=== PATIENT | female | born 1940 | race Caucasian/White ===

== ENCOUNTER 2019-07-17 04:49 | Inpatient (IN) ==
--- NOTE | 2019-07-08 21:40 | PAT Medication Instructions ---
Medication Instructions Date of Service July 08, 2019 Home Medications multivitamin 1 tab PO DAILY olmesartan 40 mg PO QAM DO NOT take the morning of surgery multivitamin 1 tab PO DAILY olmesartan 40 mg PO QAM Other Notes If you have any questions please call us at [phone] or [phone] or [phone] or [phone]
--- NOTE | 2019-07-09 10:39 | Anesthesiology Consultation ---
Date of Service July 09, 2019 Assessment & Plan (1) Encounter for pre-operative examination: s/p L MERCEDES 2012 -- SAB without issues, but patient did have PONV. PATIENT GOES BY "KELLY" Chart Review Chart Review: Acceptable Risk for Surgery and Patient seen in Pre Admission Testing Teaching & Discussion Instructed NPO after midnight before surgery, except medications with 15 cc of water. Medication instructions provided according to the PAT guidelines. History Surgery Operation Date: 07/17/19 10:40 Proposed Procedures p Right Total Hip Arthroplasty - Vincent Crews MD Height/Weight Height: 5 ft 5 in Weight: 92.5 kg Allergies Allergy/AdvReac Type Severity Reaction Status Date / Time adhesive Allergy Unknown BANDAIDS = Verified 07/03/19 12:50 RASH latex Allergy Unknown RASH Verified 07/03/19 12:50 Medications Home Medications Medication Instructions Recorded Confirmed Last Taken multivitamin 1 tab PO DAILY 07/03/19 07/03/19 Unknown olmesartan 40 mg PO QAM 07/03/19 07/03/19 Unknown Past Medical History Medical History Hypertension Obesity Osteoarthritis Pancreas cyst monitoring with Dr. Arvizu ([facility]) Exercise / Class Metabolic Activity III < 4 Walking/Shop/Light housework (Limited by hip/knee pain, but denies CP or SOB with ambulation; using cane, using scooter with longer distances i.e grocery shopping) Past Family History Family History Grandfather Family history of diabetes mellitus Past Surgical History Surgical History H/O eye surgery macular hole repair bilateral eyes. History of arthroscopy left knee History of breast biopsy left History of cataract surgery bilateral History of colonoscopy History of dilatation and curettage History of esophagogastroduodenoscopy (EGD) with ultrasound History of open reduction and internal fixation (ORIF) procedure left arm History of repair of rotator cuff right History of repair of rotator cuff left History of total hip arthroplasty left S/P THOR-BSO Past Anesthesia History No Hx of Anesthesia Complications (other than PONV) and No Family Hx of Anesthesia Complications History of PONV No Hx of Motion Sickness (but pt is very claustophobic) and History of PONV (multiple episodes, including with MERCEDES 2012 (had spinal)) Social History Smoking Status: Never smoker Do You Dip or Chew Tobacco: No Hx Alcohol Use: No Hx Substance Use: No substance use type: does not use Review of Systems Pt denies any recent chest pain, shortness of breath, palpitations, cough, fever or URI. Physical Exam Vital Signs BP: 128/82 P: 70bpm SPO2: 97% RA T: 98.5 F R: 16 ENMT Mouth: + dental bridge (upper R side) and + dental restorations (several crowns); no chipped teeth and no loose teeth Thyromental Distance: < 3.5 Finger Breadths (3) Mallampati Class: III Neck normal visual inspection; neck extension not limited Respiratory normal respiratory effort Auscultation: lungs clear to auscultation bilaterally Cardiovascular Rate/Rhythm: regular rate and regular rhythm Heart Sounds: no murmur Vessels: no carotid bruit Extremities: no edema Testing Laboratory Results 07/09/19 10:59 07/09/19 10:59 PT 10.5 Seconds (9.0-12.0) 07/09/19 10:59 INR 1.0 (0.9-1.1) 07/09/19 10:59 APTT 24.7 Seconds (21.0-31.0) 07/09/19 10:59 Blood Type A Positive 07/09/19 10:59 Antibody Screen NEGATIVE 07/09/19 10:59 Electrocardiogram Date: 07/09/19 Findings: + NSR @ (68bpm with 1st degree A-V block) No significant change compared to 02/08/2013 EKG. *unconfirmed Chest X-Ray Date: 07/09/19 FINDINGS: Cardiomediastinal and hilar silhouettes are within normal limits. Eventration of the right hemidiaphragm. Mild prominence of the aortic arch is unchanged. Ill- defined hazy opacity about the lateral left lung base is suggestive of prominent epicardial fat pad. No pneumothorax, pleural effusion, overt pulmonary edema or focal airspace consolidation. Degenerative changes of the shoulders and spine. ORIF changes of the left proximal humerus. IMPRESSION: No acute process.
--- NOTE | 2019-07-09 11:37 | XRay Report ---
XR chest Pre-admission PA/Lat HISTORY: 78 years-old Female PAT preoperative exam. No acute chest complaints COMPARISON: Chest radiographs 02/08/2013 TECHNIQUE: PA and lateral views of the chest FINDINGS: Cardiomediastinal and hilar silhouettes are within normal limits. Eventration of the right hemidiaphr agm. Mild prominence of the aortic arch is unchanged. Ill-defined hazy opacity about the lateral left lung base is suggestive of prominent epicardial fat pad. No pneumothorax, pleural effusion, overt pu lmonary edema or focal airspace consolidation. Degenerative changes of the shoulders and spine. ORIF changes of the left proximal humerus. IMPRESSION: No acute process. The above report was generated using voice recognition software. It may contain grammatical, syntax o r spelling errors. Electronically signed by: Raúl Guevara M.D. 07/09/2019 11:36 AM
[2019-07-09 14:16] LABS: Basophils # (auto) 0.03 K/uL (0-0.2); Basophils % (auto) 0.4 %; Eosinophils # (auto) 0.08 K/uL (0-0.5); Hematocrit (blood only) 42.4 % (37-47); Hemoglobin 14.3 g/dL (12.0-16.0); Immature Granulocytes # (auto) 0.03 K/uL (0.00-0.02); Immature Granulocytes % (auto) 0.4 %; Lymphocytes # (auto) 2.09 K/uL (1.2-3.4); Lymphocytes % (auto) 24.8 %; Mean Corpuscular Hgb Conc 33.7 g/dL (32-36); Mean Corpuscular Volume 88.1 fL (80-100); Mean Platelet Volume 10.9 fL (7.4-10.4); Monocytes # (auto) 0.65 K/uL (0.11-0.59); Monocytes % (auto) 7.7 %; Neutrophils # (auto) 5.54 K/uL (1.4-6.5); Neutrophils % (auto) 65.7 %; Platelet Count 274 K/uL (130-400); RDW Coefficient of Variation 13.5 % (11.5-14.5); RDW Standard Deviation 43.5 fL (36.4-46.3); Red Blood Count 4.81 M/uL (4.2-5.4); White Blood Count 8.42 K/uL (4.8-10.8)
[2019-07-09 14:22] LABS: BUN Creatinine Ratio 16.5 (10-20); C Reactive Protein 0.42 mg/dl (0-0.29); Calcium 9.1 mg/dl (8.5-10.1); Creatinine Clr Calc Pharmacy 51.9 ml/min; Est GFR (African American) 61.4; Potassium 4.1 mmol/L (3.5-5.1)
[2019-07-09 14:25] LABS: Partial Thromboplastin Ratio 0.9; Partial Thromboplastin Time 24.7 Seconds (21.0-31.0); Prothrombin Time 10.5 Seconds (9.0-12.0)
--- NOTE | 2019-07-14 09:30 | History and Physical Report ---
DATE OF ADMISSION: 07/17/2019 CHIEF COMPLAINT: Right hip and groin pain. HISTORY OF PRESENT ILLNESS: The patient is a 78-year-old female well known to me from previous left hip replacement done in 2012. I have been treating her over the years for knee arthritis and putting injections into her knee. Over the past several months, she has developed markedly increased pain and discomfort in her right hip and groin area to the point where she has had to use a cane to get along. We tried various injections, which provided some temporary relief only. She describes mostly groin pain. Her primary care doctor had ordered an MRI, which showed significant edema and collapse of the femoral head. The patient is now presenting for definitive treatment. Denies any back pain. No fevers or signs of infection. PAST MEDICAL HISTORY: 1. Hypertension. 2. Low back pain. 3. Gastroesophageal reflux disease. 4. Mild obesity with BMI of 34. PAST SURGICAL HISTORY: Includes: 1. Humerus fracture. 2. Bilateral rotator cuff repairs. 3. Cataract surgery. 4. Hysterectomy. 5. Left hip replacement done 03/12/2013. ALLERGIES: LATEX WHICH CAUSES A RASH. CURRENT MEDICATIONS: Include: 1. Multivitamin. 2. Olmesartan 40 mg a day. SOCIAL HISTORY: A 78-year-old female. She lives in [place]. She is . Does not smoke. FAMILY HISTORY: Noncontributory. REVIEW OF HISTORY: Negative for diabetes, neurologic problem, vascular problems, bleeding disorders. Denies any chest pain or shortness of breath. No history of DVT or PE. No known bleeding problems. PHYSICAL EXAMINATION: GENERAL: Shows a healthy pleasant elderly female. Looks younger than her stated age. HEENT: Benign. NECK: Supple, no lymphadenopathy. LUNGS: Clear to auscultation. HEART: Regular rate and rhythm. ABDOMEN: Soft, nontender, nondistended. EXTREMITIES: Grossly neurovascularly intact except as follows: Examination of the right hip and leg reveals patient walks with use of a cane. Leg lengths appear pretty equal. She has significant pain with any type of hip motion, particularly internal rotation. She can internally rotate to about 10 degrees, but it is painful. She can do a straight leg raise. She is neurologically intact. X-RAYS: X-rays of the right hip were reviewed. It shows [id number] hip arthritis. Fairly mild suggestion of collapse of the femoral head and a little bit of aspheric femoral head. Joint space is still maintained. She does have some Cam impingement. MRI of the right hip was reviewed from 05/01. It shows significant edema in the femoral head and a fairly large hip joint effusion. She has got collapse of the femoral head. Not classic avascular necrosis. ASSESSMENT: A 78-year-old white female with bilateral knee degenerative joint disease with a markedly increased right hip pain and discomfort over the past several months to the point where she has had to use a cane to get along. She has failed conservative treatment. Her MRI is pretty impressive and her disease is only likely to progress. Definitive treatment is hip replacement. PLAN: We talked about treatment options. We are going to proceed with right total hip replacement. The risks and benefits of this procedure were explained to the patient including but not limited to DVT, PE, , infection, neurological injury, vascular injury, bleeding problem, pain, limited range of motion, stiffness, failure to relieve her symptoms, incomplete relief of symptoms, need for further surgery in the future, fracture, leg length inequality, nerve palsy, dislocation, need for revision surgery, etc. The patient understands and desires to proceed. Informed consent was obtained. As far as discharge plans, she is planning to be discharged home using the home health program.
[2019-07-17] MEDS ORDERED: FAMOTIDINE 20 MG TAB PO SCH (06:00)
[2019-07-17] MEDS ORDERED: TRANEXAMIC ACID 1,000 MG **IV Pre-op IV SCH (06:00)
[2019-07-17] MEDS ORDERED: LR 500ML BOLUS, THEN 15ML/HR IV SCH (06:00)
[2019-07-17] MEDS ORDERED: METOCLOPRAMIDE HCL 10 MG TABLET PO SCH (06:00)
[2019-07-17] MEDS ORDERED: CEFAZOLIN 2000MG 2,000 MG/15 ML SYR IV SCH (06:00)
[2019-07-17] MEDS ORDERED: GABAPENTIN 300 MG CAP PO SCH (06:00)
[2019-07-17] MEDS ORDERED: LR 60ML/HR IV SCH (06:00)
[2019-07-17] MEDS ORDERED: ACETAMINOPHEN 500 MG TAB PO SCH (06:00)
[2019-07-17] MEDS ORDERED: BUPIVACAINE 0.5 % 5 MG/1 ML PF 10ML VIAL ONE (06:27)
[2019-07-17] MEDS ORDERED: BACITRACIN INJ 50,000 UNIT VIAL ONE (06:39)
[2019-07-17] MEDS ORDERED: BUPIVACAINE/EPINEPHRINE 0.5% MPF 1:200,000 30 ML VIAL ONE (06:39)
[2019-07-17] MEDS ORDERED: MIDAZOLAM HCL 1 MG/ML 2ML VIAL ONE (06:44)
[2019-07-17] MEDS ORDERED: MoRPHine SULFATE PF 1 MG/ML 10 ML AMP/VIAL ONE (06:48)
--- NOTE | 2019-07-17 06:50 | History & Physical Bridge Note ---
Date of Service July 17, 2019 History & Physical Bridge Note I have examined the patient, reviewed the History & Physical and in the interval since the performance of the History & Physical I have noted the following changes of clinical significance: no changes noted
[2019-07-17] MEDS ORDERED: DiphenhydrAMINE HCL 50 MG/ML VIAL ONE (06:51)
[2019-07-17] MEDS ORDERED: ONDANSETRON INJ 2 MG/ML 2 ML VIAL ONE (06:51)
[2019-07-17] MEDS ORDERED: ONDANSETRON INJ 2 MG/ML 2 ML VIAL IV PRN ×2 (07:31→10:16)
[2019-07-17] MEDS ORDERED: LACTATED RINGER'S 500 ML IV PRN (07:31)
[2019-07-17] MEDS ORDERED: NALOXONE HCL 0.08 MG in SYRINGE 1.8 ML IV PRN (07:31)
[2019-07-17] MEDS ORDERED: NALOXONE HCL 0.4 MG/1 ML VIAL/CARP IV PRN ×2 (07:31→10:16)
[2019-07-17] MEDS ORDERED: KETOROLAC TROMETHAMINE 15 MG/ML VIAL IV PRN (07:31)
[2019-07-17] MEDS ORDERED: DiphenhydrAMINE HCL 50 MG/ML VIAL IV PRN (07:31)
[2019-07-17] MEDS ORDERED: PROMETHAZINE HCL 12.5 MG in SODIUM CHLORIDE 0.9% 50 ML IV PRN (07:31)
[2019-07-17] MEDS ORDERED: MoRPHine SULFATE PF 1 MG/ML 10 ML AMP/VIAL INT SPINAL ONE (07:31)
[2019-07-17] MEDS ORDERED: NALOXONE HCL 1 MG in SODIUM CHLORIDE 0.9% 1000ML 1,000 ML IV PRN (07:31)
[2019-07-17] MEDS ORDERED: MEPERIDINE HCL 25 MG/ML CARP IV PRN (07:31)
[2019-07-17] MEDS ORDERED: NALBUPHINE HCL INJ 10 MG/ML AMP IV PRN (07:31)
[2019-07-17] MEDS ORDERED: ePHEDrine sulfate 50 MG/ML AMP IV PRN (07:31)
[2019-07-17] MEDS ORDERED: PROPOFOL IV EMULSION 10 MG/ML 20 ML VIAL IV ONE ×3 (07:34→08:20)
[2019-07-17] MEDS ORDERED: ePHEDrine sulfate 50 MG/ML SYR ONE (07:34)
[2019-07-17] MEDS ORDERED: DC INTRASPINAL MORPHINE SCH (07:45)
[2019-07-17] MEDS ORDERED: NO NARCOTICS OR SEDATIVES SCH (07:45)
[2019-07-17] MEDS ORDERED: SODIUM CHLORIDE 0.9% 1000ML 1,000 ML IV SCH (07:45)
[2019-07-17] MEDS ORDERED: PHENYLEPHRINE 100MCG/ML 5ML SYR ONE (08:16)
--- NOTE | 2019-07-17 08:41 | Post Operative Brief Note ---
PG Immediate Post Op with CF Date of Surgery July 17, 2019 Pre & Post Diagnosis Operation Date: 07/17/19 07:00 Pre-Op Diagnosis: Right Hip Degenerative Joint Disease Post-Op Diagnosis: Right Hip Degenerative Joint Disease Procedure Operation Date: 07/17/19 07:00 Actual Procedures p Right Total Hip Arthroplasty(Right) - Vincent Crews MD Surgeon Vincent Crews MD Bump Grader Operator Celio, PAC Estimated Blood Loss 200 Findings Consistent with Post-Op Diagnosis Fluids 800 cc Specimens Specimen Description: Permanent Specimens: A) Right Femoral Head Drains Lowery Catheter (latex free) Anesthesia Type Spinal MAC Complications none Disposition Accompanied Patient To Recovery: Yes Disposition: Recovery Room
--- NOTE | 2019-07-17 09:12 | XRay Report ---
AP PELVIS, CROSSTABLE LATERAL RIGHT HIP History: Right total hip arthroplasty. Degenerative arthritis. Postop. FINDINGS: The patient is status post a right total hip arthroplasty. The hardware is intact. No fract ure or dislocation. Skin aldo are in place. Prior left total hip arthroplasty. IMPRESSION: Right total hip arthroplasty. No evidence for hardware complication Electronically signed by: Natanael Rico M.D. 07/17/2019 9:10 AM
--- NOTE | 2019-07-17 09:43 | Anesthesiology Progress Note ---
Date of Service July 17, 2019 Anesthesia Post Procedure Vital Signs Vital Signs: Temp Pulse Pulse Resp BP Pulse Ox 07/17/19 09:30 36.6 C 76 20 129/58 L 96 07/17/19 09:20 36.6 C 77 20 108/52 L 98 07/17/19 09:10 36.6 C 77 20 132/60 94 07/17/19 09:00 78 15 118/55 L 99 07/17/19 08:50 75 16 134/62 100 07/17/19 08:42 36.5 C 77 16 156/69 H 100 07/17/19 05:35 36.9 C 73 20 178/96 H 97 Transfer of Care Handoff Completed per policy Notes Mental Status: alert / awake / arousable Patient Amnestic to Procedure: Yes Nausea / Vomiting: adequately controlled Pain: adequately controlled Airway Patency, RR, SpO2: stable & adequate BP & HR: stable & adequate Hydration State: stable & adequate Neuraxial Anesthesia: was administered and sensory block is resolving Anesthetic Complications: no major complications apparent
[2019-07-17] MEDS ORDERED: HYDROmorphone INJ 0.5 MG/0.5 ML SYR IV PRN (10:16)
[2019-07-17] MEDS ORDERED: ALUMINUM/MAGNESIUM SUSP 30 ML UDC PO PRN (10:16)
[2019-07-17] MEDS ORDERED: METOCLOPRAMIDE HCL INJ 5 MG/ML 2 ML VIAL IV PRN (10:16)
[2019-07-17] MEDS ORDERED: BISACODYL 10 MG SUPP PR PRN (10:16)
[2019-07-17] MEDS ORDERED: MULTIVITAMIN TAB PO SCH (10:16)
[2019-07-17] MEDS ORDERED: MAGNESIUM HYDROXIDE SUSP 30 ML UDC PO PRN (10:16)
--- NOTE | 2019-07-17 11:09 | Operative Report ---
DATE OF OPERATION: 07/17/2019 SURGEON: Vincent Crews MD MECHANICAL SYSTEMS DESIGN ENGINEER: INGRIS Nguyễn PREOPERATIVE DIAGNOSIS: Right hip degenerative joint disease. POSTOPERATIVE DIAGNOSIS: Right hip degenerative joint disease. PROCEDURE PERFORMED: Right uncemented ceramic on highly cross-linked polyethylene total hip arthroplasty. COMPLICATIONS: None. ESTIMATED BLOOD LOSS: 200 mL. FLUID REPLACEMENT: 800 mL crystalloid fluid replacement. ANESTHESIA: Spinal. DRAINS: None. SPECIMEN: Right femoral head sent for pathology. OPERATIVE INDICATIONS: The patient is a 78-year-old white female who is well known to me from treating her multiple arthritic joints over the years. She underwent a left hip replacement about 5 years ago. I have been treating her for knee arthritis, and over the past several months, she developed markedly increased pain and discomfort in her right hip to the point where she has had to resort to using a cane to get along. We treated her with one injection which provided minimal relief. She continued on conservative care without much relief. An MRI showed extensive edema in the femoral head and collapse of the femoral head and a joint effusion. The patient elected to proceed with surgical treatment. OPERATIVE FINDINGS: Operative findings revealed advanced right hip DJD. She has significant joint effusion. She had an anterior acetabular osteophytes and a full thickness cartilage loss of the femoral head and acetabulum. OPERATIVE IMPLANTS: Operative implants consisted of: 1. A Biomet G7 size 52 mm acetabular shell. 2. 6.5 cancellous acetabular screws, 1 at 35 mm in length and 1 at 30 mm in length. 3. An apex hole eliminator. 4. A highly cross-linked polyethylene liner with a 52 mm outer diameter, 36 mm inner diameter with a caceres placed inferior and posterior. 5. DePuy Corail size 10 KLA femoral stem. 6. A +1.5/36 mm ceramic articular ball. OPERATIVE PROCEDURE: The patient was taken to the operating room, identified and placed on the operating table in supine position. All contact areas were appropriately padded. IV antibiotics provided by anesthesia team. Spinal anesthetic had been implemented in the holding area. Lowery catheter was placed in sterile fashion. The patient was then placed in the left lateral decubitus position. An axillary roll was placed. [facility] hip positioner was used for positioning. Right hip and leg were then prepped and draped in usual sterile fashion. A posterolateral approach to the right hip was then performed through a curvilinear incision centered over the greater trochanter. Sharp dissection was carried through subcutaneous tissue down to the level of the IT band and gluteal fascia. She had very large thick soft tissue envelope. The IT band and gluteal fascia were then incised longitudinally in line with skin incision. The underlying greater trochanteric bursa was excised. The piriformis and external rotators were tagged and taken off the posterior aspect of the hip joint capsule. A posterior capsulotomy was then performed leaving a large flap for later repair. Hip was internally rotated and dislocated. Femoral neck osteotomy cut was made with final cut about 12 mm above the lesser trochanter. Femoral head was removed and sent for pathology. The femur was retracted anteriorly. Attention was then drawn to the acetabulum. The acetabulum labrum was excised. The pulvinar fat was excised. Sequential reaming of the acetabulum was then performed beginning with size 43 and progressing up to 51. I then did ream a bit with a 52 reamer and we placed a 52 mm cup in about 40 degrees of lateral opening and 20 degrees of anteversion. A large anterior osteophyte was removed. The cup was fixed with two 6.5 cancellous acetabular screws. A trial liner was placed. Attention was then drawn to the femur. The proximal femur was entered with cookie cutter followed by canal finder. I then broached beginning with a size 8 and progressing up to a 10. We got good fit at 10. We then trialed the hip. I did use a calcar reamer to smoothen off the calcar. We trialed the hip initially with a +5 head, but soft tissue tension just seemed too tight. We used the +1.5/36 mm ceramic head. The hip was fully stable in full extension and external rotation and flexion to 90 degrees, internal rotation to about [address] a caceres inferior and posterior to maximize stability in flexion. We elected to place these implants. All trial implants were removed. An apex hole eliminator was placed. A permanent polyethylene liner highly cross-linked with a caceres placed inferior and posterior was impacted in position. A DePuy Corail size 10 KLA femoral stem was impacted in position. A +1.5/36 mm ceramic articular ball was placed. Hip was located and once again found to be stable. Attention was then drawn toward closing. The wound was irrigated with copious amounts of pulsatile lavage solution. I did inject locally with 60 mL of 0.5% Marcaine with epinephrine. Posterior capsule and external rotators were then repaired through drill holes in the posterior trochanter with #2 Ti-Cron suture. The IT band and gluteal fascia were then closed with #1 PDS suture in running fashion. The subcutaneous tissue was then closed with 2 layers with the deep layer #2 Vicryl suture in a buried interrupted fashion and subcutaneous tissues with 2-0 Dexon suture in a buried interrupted fashion. Skin was closed with skin aldo. Leg was then cleaned, dried and a sterile dressing of Xeroform, 4 x 4, sterile ABD pad and foam tape was applied. The patient then transferred to the recovery room in stable condition. The patient tolerated the procedure well with no complication. All needle and sponge counts were correct at the end of the operation. I attest to the content of the Intraoperative Record and any orders documented therein. Any exception s are noted below.
[2019-07-17] MEDS: SODIUM CHLORIDE 0.9% 1000ML 1,000 ML IV SCH ×2 (11:53→20:48)
[2019-07-17] MEDS: ASPIRIN 81 MG ECTAB PO SCH ×2 (12:55→20:43)
[2019-07-17] MEDS: MULTIVITAMIN TAB PO SCH (12:55)
[2019-07-17] MEDS: OLMESARTAN MEDOXOMIL 40 MG TAB PO SCH (12:56)
[2019-07-17] MEDS: DOCUSATE SODIUM 100 MG CAP PO SCH ×2 (12:58→20:48)
[2019-07-17] MEDS: CEFAZOLIN 2000MG 2,000 MG/15 ML SYR IV SCH ×2 (14:22→22:16)
[2019-07-17] MEDS: ACETAMINOPHEN 500 MG TAB PO SCH ×2 (14:31→22:16)
[2019-07-17] MEDS ORDERED: TRANEXAMIC ACID 1,000 MG in 0.9 % SODIUM CHLORIDE 100 ML IV SCH (14:42)
--- NOTE | 2019-07-17 15:16 | Progress Note ---
DATE: 07/17/2019 SUBJECTIVE: A 78-year-old white female postop from a right hip replacement. She is doing well. Not having any pain yet. No chest pain or shortness of breath. Not feeling dizzy or lightheaded. OBJECTIVE: VITAL SIGNS: Temperature 36.4. Vital signs stable. GENERAL: Reveals a pleasant elderly female. She is sitting up in her bed and looks comfortable. She is talking to her family. LUNGS: Clear to auscultation. HEART: Has regular rate and rhythm. ABDOMEN: Soft, nontender, nondistended. EXTREMITIES: Grossly neurovascularly intact except as follows: Examination of the right lower extremity reveals the leg lengths to be equal. Dressing is clean, dry and intact. Thigh is soft and supple. She is neurologically intact. She can dorsiflex and plantarflex her foot appropriately. X-RAYS: X-ray of the right hip from recovery room reviewed. It shows a right uncemented total hip arthroplasty. Components looked to be in good position. No signs of problems. ASSESSMENT: A 78-year-old white female postop from right hip replacement, doing well. Pain is controlled. Hip is located. She is neurologically intact. PLAN: 1. DVT prophylaxis including thigh-high TEDs, SCDs, and aspirin twice a day. 2. PT/OT. Weight bear as tolerated. Right total hip protocol. 3. Pain control, doing pretty well with current pain regimen. 4. IV antibiotics x24 hours. 5. Disposition: Plan to discharge to home with some home health once adequately recovered and medically stable.
[2019-07-17] MEDS: FERROUS GLUCONATE 324 MG TAB PO SCH (17:47)
[2019-07-17] MEDS: ASCORBIC ACID 500 MG TAB PO SCH (17:48)
[2019-07-17] MEDS: SENNA 8.6 MG TAB PO SCH (20:44)
[2019-07-18] MEDS ORDERED: KETOROLAC TROMETHAMINE 15 MG/ML VIAL IV SCH (02:00)
[2019-07-18 06:06] LABS: Basophils # (auto) 0.01 K/uL (0-0.2); Basophils % (auto) 0.1 %; Eosinophils # (auto) 0.02 K/uL (0-0.5); Eosinophils % (auto) 0.2 %; Hematocrit (blood only) 33.2 % (37-47); Hemoglobin 11.1 g/dL (12.0-16.0); Immature Granulocytes # (auto) 0.02 K/uL (0.00-0.02); Immature Granulocytes % (auto) 0.2 %; Lymphocytes # (auto) 1.45 K/uL (1.2-3.4); Lymphocytes % (auto) 11.5 %; Mean Corpuscular Hgb Conc 33.4 g/dL (32-36); Mean Corpuscular Volume 88.3 fL (80-100); Mean Platelet Volume 10.2 fL (7.4-10.4); Monocytes # (auto) 0.97 K/uL (0.11-0.59); Monocytes % (auto) 7.7 %; Neutrophils # (auto) 10.15 K/uL (1.4-6.5); Neutrophils % (auto) 80.3 %; Platelet Count 173 K/uL (130-400); RDW Coefficient of Variation 13.7 % (11.5-14.5); RDW Standard Deviation 44.5 fL (36.4-46.3); Red Blood Count 3.76 M/uL (4.2-5.4); White Blood Count 12.62 K/uL (4.8-10.8)
[2019-07-18] MEDS: ACETAMINOPHEN 500 MG TAB PO SCH ×3 (06:14→21:16)
[2019-07-18 06:43] LABS: BUN Creatinine Ratio 13.5 (10-20); Calcium 7.9 mg/dl (8.5-10.1); Creatinine Clr Calc Pharmacy 38.9 ml/min; Est GFR (African American) 43.8; Est GFR (Non-African American) 37.8; Potassium 3.7 mmol/L (3.5-5.1)
[2019-07-18] MEDS: FERROUS GLUCONATE 324 MG TAB PO SCH ×2 (08:28→17:35)
[2019-07-18] MEDS: ASCORBIC ACID 500 MG TAB PO SCH ×2 (08:28→17:35)
[2019-07-18] MEDS: OLMESARTAN MEDOXOMIL 40 MG TAB PO SCH (08:28)
[2019-07-18] MEDS: MULTIVITAMIN TAB PO SCH (08:28)
[2019-07-18] MEDS: ASPIRIN 81 MG ECTAB PO SCH ×2 (08:28→21:16)
[2019-07-18] MEDS: DOCUSATE SODIUM 100 MG CAP PO SCH ×2 (08:28→21:03)
[2019-07-18] MEDS: TRAMADOL HCL 50 MG TABLET PO PRN ×2 (09:20→15:24)
--- NOTE | 2019-07-18 20:37 | Progress Note ---
DATE: 07/18/2019 SUBJECTIVE: A 78-year-old white female postop day 1 from right hip replacement. She is doing pretty well. Doing okay with pain meds. No chest pain or shortness of breath. Not feeling dizzy or lightheaded. OBJECTIVE: VITAL SIGNS: Temperature 36.9. Vital signs stable. PHYSICAL EXAMINATION: GENERAL: Pleasant, middle-aged female. She is sitting up in her bedside chair talking to her . Looks comfortable. EXTREMITIES: Examination of the right hip reveals the dressing to be clean, dry and intact. Leg lengths are equal. Hip is located. She is neurologically intact. LABORATORY DATA: Hemoglobin 11.1. Hematocrit 33.2. Electrolytes are stable. Creatinine is a little bit elevated at 1.35. ASSESSMENT: A 78-year-old white female postop day 1 from a right hip replacement, doing pretty well. Pain is controlled. Hip is located. Her creatinine is a bit elevated and we will stop her Toradol. Recheck her creatinine in the morning. PLAN: 1. DVT prophylaxis including thigh-high TEDs, SCDs, and aspirin twice a day. 2. PT/OT. Weight bear as tolerated. Right total hip protocol. 3. Pain control, doing pretty well with current pain regimen. 4. Elevated creatinine. We will stop the Toradol and recheck her creatinine in the morning. Encourage p.o. fluid intake. 5. Disposition: Plan to discharge to home with some home health tomorrow if doing okay with therapy.
[2019-07-18] MEDS: SENNA 8.6 MG TAB PO SCH (21:03)
[2019-07-19] MEDS: TRAMADOL HCL 50 MG TABLET PO PRN ×2 (01:34→07:49)
[2019-07-19 05:52] LABS: BUN Creatinine Ratio 13.2 (10-20); Calcium 8.5 mg/dl (8.5-10.1); Est GFR (African American) 60.7; Est GFR (Non-African American) 52.4; Potassium 3.6 mmol/L (3.5-5.1)
[2019-07-19] MEDS: ACETAMINOPHEN 500 MG TAB PO SCH (06:16)
[2019-07-19] MEDS: DOCUSATE SODIUM 100 MG CAP PO SCH (07:51)
[2019-07-19] MEDS: MULTIVITAMIN TAB PO SCH (07:51)
[2019-07-19] MEDS: OLMESARTAN MEDOXOMIL 40 MG TAB PO SCH (07:51)
[2019-07-19] MEDS: ASPIRIN 81 MG ECTAB PO SCH (07:51)
[2019-07-19] MEDS: ASCORBIC ACID 500 MG TAB PO SCH (07:51)
[2019-07-19] MEDS: FERROUS GLUCONATE 324 MG TAB PO SCH (07:51)
--- NOTE | 2019-07-19 07:59 | Progress Note ---
DATE: 07/19/2019 SUBJECTIVE: A 78-year-old white female postop day 2 from right hip replacement. She is doing pretty well. Some soreness in her hip. Taking tramadol and doing okay with that. No chest pain or shortness of breath. OBJECTIVE: VITAL SIGNS: Temperature 37.2. Vital signs stable. GENERAL: Shows a pleasant, middle-aged female. She is sitting up in bed, looks pretty comfortable. EXTREMITIES: Examination of the right leg reveals the dressing to be clean, dry and intact. Thigh is soft and supple. NEUROLOGIC: She is neurologically intact. ASSESSMENT: A 78-year-old white female postop day 2 from right hip replacement, doing pretty well. Pain is reasonably well controlled. Hip is located. She is neurologically intact. PLAN: 1. DVT prophylaxis including thigh-high TEDs, SCDs, and aspirin twice a day. 2. PT/OT. Weight bear as tolerated. Right total hip protocol. 3. Pain control, doing okay with current pain regimen. 4. Disposition: Plan to discharge to home with some home health later today.
--- NOTE | 2019-07-20 22:52 | Discharge Summary ---
ADMITTING PHYSICIAN AND SURGEON: Dr. Vincent Crews. ADMITTING DIAGNOSIS: Right hip degenerative joint disease. SURGERY PERFORMED: Right total hip arthroplasty. SECONDARY DIAGNOSES: Hypertension, low back pain, gastroesophageal reflux disease, mild obesity. CONSULTS: None obtained. HISTORY AND PHYSICAL EXAMINATION: Well documented in the patient's chart. HOSPITAL COURSE: The patient was admitted on 07/17/2019, underwent a total hip arthroplasty, tolerated the procedure well. There were no complications. She was transferred to the PACU postoperatively and later to the orthopedic for further care. She was given Ancef for antibiotic prophylaxis, EHSAN stockings, SCDs and aspirin for DVT prophylaxis. Hemoglobin, hematocrit and vital signs were monitored during her hospital stay and remained stable. She did not require any blood transfusions. There were no complications. By postoperative day 2, she was tolerating a regular diet, pain was controlled with oral pain medicine. She was participating in physical therapy. Postop day 3, she was discharged home, set up with home health services. She was given printed discharge instructions including new prescriptions for extra-strength Tylenol, aspirin and tramadol. Continue her normal medicines. Continue physical therapy, weightbearing as tolerated, total hip precautions, EHSAN stockings. Follow up approximately 2 weeks or sooner if there are any problems or concerns.
== END 2019-07-19 09:50 | disposition home health service (06) | DRG 470 ==
LOC: ASU 04:49 → 3E 08:44
DX: M16.11 Unilateral primary osteoarthritis, right hip; Z68.33 Body mass index [BMI] 33.0-33.9, adult; Z79.899 Other long term (current) drug therapy; Z91.048 Other nonmedicinal substance allergy status; Z96.642 Presence of left artificial hip joint; I10 Essential (primary) hypertension; E66.9 Obesity, unspecified; R94.4 Abnormal results of kidney function studies; Z91.040 Latex allergy status